=== PATIENT | male | born 1995 | race African-American/Black ===

== ENCOUNTER 2018-03-18 10:45 | Day surgery (SDC) | payer OTHER ==
[~2018-03-18 10:45] MED LIST: LR 1,000 ML IV
[2018-03-18] MEDS ORDERED: LIDOCAINE 1% MDV 20ML VIAL SQ ×2 (11:00)
[2018-03-18 11:27] LABS: SICKLE CELL SCREEN NEGATIVE (NEGATIVE)
[2018-03-18] MEDS: VANCOMYCIN HCL 1,000 MG, VIAL MATE ADAPTER 1 EACH in D5W 250 ML IV ×2 (12:45)
[2018-03-18] MEDS ORDERED: KETAMINE HCL 200 MG/20 ML VIAL As Ordered ×2 (12:47)
[2018-03-18] MEDS ORDERED: fentaNYL 100 MCG/2 ML INJECTION (J3010) As Ordered ×4 (12:53→15:51)
[2018-03-18] MEDS ORDERED: KETOROLAC 60 MG/2 ML VIAL (J1885) As Ordered ×2 (12:53)
[2018-03-18] MEDS ORDERED: PROPOFOL 200 MG/20 ML VIAL As Ordered ×12 (12:53→15:14)
[2018-03-18] MEDS ORDERED: ONDANSETRON 4MG/2ML VIAL (J2405) As Ordered ×2 (12:53)
[2018-03-18] MEDS ORDERED: MIDAZOLAM INJ 2 MG/2 ML VIAL (J2250) As Ordered ×2 (12:53)
[2018-03-18] MEDS ORDERED: LIDOCAINE 2% INJ 100 MG/5 ML SDV (FOR ANES.) As Ordered ×2 (12:53)
[2018-03-18] MEDS: LIDOCAINE 2% MDV 20 ML VIAL As Ordered ×2 (13:14)
[2018-03-18] MEDS: BUPIVACAINE HCL 0.5% 30 ML VIAL As Ordered ×2 (13:14)
[2018-03-18] MEDS: BACITRACIN PWD 50,000 UNITS VIAL As Ordered ×2 (13:56)
[2018-03-18] MEDS: dexameTHASONE 4 MG/ML 1ML VIAL (J1100) As Ordered ×2 (13:57)
[2018-03-18] MEDS: NEOSPORIN GU IRRIG 20 ML VIAL As Ordered ×2 (13:57)
[2018-03-18] MEDS: fentaNYL 100 MCG/2 ML INJECTION (J3010) IV ×8 (15:50→16:05)
[2018-03-18] MEDS ORDERED: PERCOCET 5MG/325MG TAB As Ordered ×4 (15:51→17:16)
[2018-03-18] MEDS: PERCOCET 5MG/325MG TAB PO ×4 (15:55→17:20)
[2018-03-18] MEDS ORDERED: ONDANSETRON 4MG/2ML VIAL (J2405) IV ×6 (16:00→18:00)
[2018-03-18] MEDS ORDERED: METOCLOPRAMIDE INJ 10MG/2ML VIAL (J2765) IV ×6 (16:00→18:00)
[2018-03-18] MEDS ORDERED: LR 1,000 ML IV ×6 (16:00→18:00)
[2018-03-18] MEDS ORDERED: KETOROLAC 30 MG/ML VIAL (J1885) IV ×6 (16:00→18:00)
[2018-03-18] MEDS ORDERED: GLYCOPYRROLATE INJ 0.2 MG/ML 2 ML VIAL As Ordered ×2 (16:22)
[2018-03-18] MEDS: GLYCOPYRROLATE INJ 0.2 MG/ML 2 ML VIAL IV ×2 (16:23)
[2018-03-18] MEDS ORDERED: fentaNYL 100 MCG/2 ML INJECTION (J3010) IV ×4 (16:45→18:00)
[2018-03-18] MEDS ORDERED: PERCOCET 5MG/325MG TAB PO ×4 (16:45→18:00)
[2018-03-18] MEDS ORDERED: GLYCOPYRROLATE INJ 0.2 MG/ML 2 ML VIAL IV ×2 (18:00)
== END 2018-03-18 18:45 | disposition home or self-care (01) ==
LOC: M SDC 10:45
DX: M20.11 Hallux valgus (acquired), right foot (principal); M20.41 Other hammer toe(s) (acquired), right foot; M77.41 Metatarsalgia, right foot
CPT/HCPCS: 28296